=== PATIENT | female | born 1995 | race African-American/Black ===

== ENCOUNTER 2017-07-05 16:38 | Emergency (ER) | payer MEDICAID ==
[~2017-07-05] VITALS: Ht 172.7 cm; Wt 60.0 kg
[2017-07-05 17:00] VITALS: BP 137/80
== END 2017-07-05 20:00 | disposition left against medical advice (07) ==
LOC: ER 17:58
DX: R10.9 Unspecified abdominal pain (principal); Z53.21 Procedure and treatment not carried out due to patient leaving prior to being seen by health care provider

== ENCOUNTER 2017-11-07 11:51 | Emergency (ER) | payer MEDICAID ==
[~2017-11-07] VITALS: Ht 172.7 cm; Wt 61.8 kg
[2017-11-07 12:19] VITALS: BP 129/73
== END 2017-11-07 12:59 | disposition home or self-care (01) ==
LOC: ER 12:25
DX: S90.562A Insect bite (nonvenomous), left ankle, initial encounter (principal); S90.561A Insect bite (nonvenomous), right ankle, initial encounter; W57.XXXA Bitten or stung by nonvenomous insect and other nonvenomous arthropods, initial encounter; Y93.89 Activity, other specified; Y92.89 Other specified places as the place of occurrence of the external cause; Y99.8 Other external cause status
CPT/HCPCS: 99283

== ENCOUNTER 2018-02-07 07:42 | Emergency (ER) | payer MEDICAID, MEDICARE ==
[~2018-02-07] VITALS: Ht 172.7 cm; Wt 60.0 kg
[2018-02-07] MEDS ORDERED: ACETAMINOPHEN 325MG TABLET PO ONE (08:15)
[2018-02-07 09:20] VITALS: BP 130/89
[2018-02-07 09:29] LABS: CLARITY URINE CLEAR (CLEAR); COLOR URINE YELLOW (YELLOW); KETONES URINE NEGATIVE (NEGATIVE); LEUKOCYTE ESTERASE URINE 1+ (NEGATIVE); NITRITE URINE NEGATIVE (NEGATIVE); OCCULT BLOOD URINE NEGATIVE (NEGATIVE); PROTEIN URINE NEGATIVE (NEGATIVE); SPECIFIC GRAVITY URINE 1.025 (1.005-1.030)
== END 2018-02-07 10:08 | disposition home or self-care (01) ==
LOC: ER 07:42
DX: N39.0 Urinary tract infection, site not specified (principal); L03.032 Cellulitis of left toe
CPT/HCPCS: 81003; 81025; 99283